=== PATIENT | male | born 1970 | race Caucasian/White ===

== ENCOUNTER 2018-10-20 21:26 | Emergency (ER) | payer BC, OTHER ==
[2018-10-20 21:42] VITALS: BP 125/82; PULSE 89; RESP 18; TEMP 98.2
[2018-10-20] MEDS ORDERED: KETOROLAC 60 MG/2 ML VIAL IM STA (22:18)
--- NOTE | 2018-10-20 22:22 | ED ---
Upper Extremity HPI - General Chief Complaint: Extremity Injury, Upper Stated Complaint: Shoulder pain Time Seen by Provider: 10/20/18 21:47 Source: patient Mode of arrival: ambulatory Limitations: no limitations - History of Present Illness Initial Comments: Patient is a 47-year-old male presenting to the emergency Department with complaints of right shoulder pain that has been intermittent for a few months now. Patient denies any injuries or trauma to the right shoulder. Patient states the pain has just been increasing and he wanted it to be checked. Patient has not seen his PCP for this. Patient states he has had pain in the top and front part of his right shoulder. Patient states if he lays on it it gets worse. Patient denies any numbness and tingling into the right hand. Denies any previous surgeries the right shoulder. Patient denies any fever, chills. Patient no other complaints at this time. - Related Data Allergies Allergy/AdvReac Type Severity Reaction Status Date / Time amoxicillin Allergy Unknown Verified 10/20/18 21:42 Childhood Review of Systems ROS Statement: Those systems with pertinent positive or pertinent negative responses have been documented in the HPI. ROS Other: All systems not noted in ROS Statement are negative. Past Medical History Past Medical History: No Reported History History of Any Multi-Drug Resistant Organisms: None Reported Past Surgical History: Appendectomy Past Psychological History: No Psychological Hx Reported Smoking Status: Light tobacco smoker Past Alcohol Use History: None Reported Past Drug Use History: None Reported General Exam - General Exam Comments Initial Comments: GENERAL: Well-appearing, well-nourished and in no acute distress. HEAD: Atraumatic, normocephalic. EYES: Pupils equal round and reactive to light, extraocular movements intact, sclera anicteric, conjunctiva are normal. ENT: TMs normal, nares patent, oropharynx clear without exudates. Moist mucous membranes. NECK: Normal range of motion, supple without lymphadenopathy or JVD. LUNGS: Breath sounds clear to auscultation bilaterally and equal. No wheezes rales or rhonchi. HEART: Regular rate and rhythm without murmurs, rubs or gallops. ABDOMEN: Soft, nontender, normoactive bowel sounds. No guarding, no rebound. No masses appreciated. : Deferred EXTREMITIES: Normal range of motion of the right shoulder. Patient has 5 out of 5 strength of the right shoulder. Patient has pain with empty can test. No pitting or edema. No clubbing or cyanosis. Neurovascular intact. NEUROLOGICAL: Cranial nerves II through XII grossly intact. Normal speech, normal gait. PSYCH: Normal mood, normal affect. SKIN: Warm, Dry, normal turgor, no rashes or lesions noted. Limitations: no limitations Course Vital Signs 10/20/18 21:40 Temperature 98.2 F Pulse Rate 89 Respiratory 18 Rate Blood Pressure 125/82 O2 Sat by Pulse 98 Oximetry Medical Decision Making - Medical Decision Making Patient is a 47-year-old male presenting with right shoulder pain that has been intermittent for 2-3 months now. Patient denies any trauma or injuries to the shoulder. Patient has full range of motion of the right shoulder. Patient has positive empty can sign. Patient has signs and symptoms consistent with impingement syndrome. Was recommended to use ice and NSAIDs. Patient was given orthopedic referral for further evaluation. Patient is in agreement with this plan of care. Return parameters were discussed with the patient and he verbalized understanding. Case discussed with Dr. Grewal. Disposition Clinical Impression: Impingement syndrome of right shoulder Disposition: HOME SELF-CARE Condition: Stable Instructions (If sedation given, give patient instructions): Rotator Cuff Injury (ED) Additional Instructions: Please return to the Emergency Department if symptoms worsen or any other concerns. Follow-up with orthopedics as discussed. Is patient prescribed a controlled substance at d/c from ED?: No Referrals: None,Stated [Primary Care Provider] - 1-2 days Jermaine Miller MD [STAFF PHYSICIAN] - 1-2 days
== END 2018-10-20 22:36 | disposition home or self-care (01) ==
LOC: EC 21:26
DX: M75.41 Impingement syndrome of right shoulder (principal); F17.210 Nicotine dependence, cigarettes, uncomplicated; Z88.0 Allergy status to penicillin
CPT/HCPCS: 99283; 96372; J1885

== ENCOUNTER → 2019-12-23 | Outpatient (CLI) | payer OTHER ==
--- NOTE | 2019-12-23 19:01 | CONS ---
CONSULTATION DATE OF SERVICE: 12/23/2019 HISTORY OF PRESENT ILLNESS: Deep Oliver is a 49-year-old gentleman has been evaluated in [facility] for possible obstructive sleep apnea-hypopnea syndrome. HISTORY OF PRESENT ILLNESS SLEEP-WAKE EVALUATION: SLEEP SCHEDULE: Patient usually sleeps from 1:00 p.m. to 7:00 pm because he works as a fast food shift supervisor worker. DURING THE SLEEP: He snores and has been told about episodes of stopped breathing during sleep. He wakes up from sleep about 4 times with nocturia. FALLING ASLEEP: Usually no problem with falling asleep. He drinks up to 2 caffeinated beverages. DURING THE DAY/SLEEP WAKE EVALUATION: He may take naps on the days off. [place] Sleepiness Scale is significantly increased to 12. PAST MEDICAL HISTORY: Positive for depression, acid reflux, and carpal tunnel syndrome, diabetes mellitus. PAST SURGICAL HISTORY: Appendectomy. CURRENT MEDICATIONS: Lexapro, metformin, also patient takes medication for acid reflux. SOCIAL HISTORY: Positive for smoking cigars, up to 3 to 4 cigars per month for 15 years. Alcohol consumption occasional beer. PHYSICAL EXAM: gentleman without distress. BP 120/81, HR 72, RR 15, height 6 feet, weight 260 pounds, BMI 36.3, temperature 97.3, oxygen saturation at room air 97%. Oropharynx extremely low position of soft palate. Mallampati IV. NECK: Wide neck, measuring 20 inches in circumference. LUNGS: Clear to percussion and to auscultation. Good air exchange. No wheezing or rhonchi. HEART: S1, S2 regular. No murmurs, gallops, or rubs. ABDOMEN: Soft and nontender. Bowel sounds are present. No organomegaly appreciated. EXTREMITIES: No clubbing or cyanosis. COMMUNICATIONS ATTENDANT: Awake, alert, and oriented X3. Cranial nerves 2 to 7 intact. There is no fasciculation or atrophy. noted. No focal deficits observed. IMPRESSION: 1. Snoring witnessed episodes of stopped breathing during the sleep, extremely low position of soft palate, obesity, obstructive sleep apnea-hypopnea syndrome. 2. Diabetes mellitus. 3. Depression. 4. Acid reflux. 5. History of carpal tunnel syndrome. 6. Status post appendectomy. PLAN: 1. Polysomnography for evaluation of patient's breathing during sleep. 2. CPAP/BiPAP titration if sleep study confirms obstructive sleep apnea-hypopnea syndrome. 3. Preferable position during sleep on the side. 4. No driving if patient feels any sleepiness. 5. I will see patient for follow up visit to explain results of testing and following plan. thank you very much for referring this patient for consultation. Sincerely, Roc Acosta MD, PhD, FAASM Diplomat of [employer] [employer] [place] [employer] Supervisor [employer] [facility] [place] MMODL / IJN: [id number] /
== END | disposition home or self-care (01) ==
LOC: SLEEP 16:47
PROVIDERS: ATTEND Internal Medicine
DX: G47.33 Obstructive sleep apnea (adult) (pediatric) (principal); E11.9 Type 2 diabetes mellitus without complications; F32.9 Major depressive disorder, single episode, unspecified; K21.9 Gastro-esophageal reflux disease without esophagitis; Z79.84 Long term (current) use of oral hypoglycemic drugs; Z79.899 Other long term (current) drug therapy; Z90.49 Acquired absence of other specified parts of digestive tract; Z87.39 Personal history of other diseases of the musculoskeletal system and connective tissue
CPT/HCPCS: 99211